=== PATIENT | female | born 2000 | race Caucasian/White ===

== ENCOUNTER 2023-06-03 23:27 | Emergency (ER) | payer BC, SELFPAY ==
[2023-06-03 23:50] VITALS: BP 134/78; PULSE 85; RESP 18; TEMP 36.8; O2SAT 99; BMI 32.0
[2023-06-03 23:50] LABS: Appearance Urine Cloudy (Clear); Bilirubin Urine 1+ (Negative); Blood Urine 3+ (Negative); Color Urine Yellow (Yellow); Glucose Urine Negative (Negative); Ketones Urine Trace (Negative); Leukocyte Esterase Urine 1+ (Negative); Nitrite Urine Negative (Negative); Protein Urine 3+ (Negative); Specific Gravity Urine >= 1.030 (1.000-1.030); Urobilinogen Urine 0.2 (0.2-1.0); pH Urine 5.5 (5.0-8.5)
[2023-06-04 00:03] LABS: Bacteria Urine Few; RBC Urine >100 (0-2); WBC Urine >100 (0-5)
--- NOTE | 2023-06-04 00:15 | ED.GENADULT ---
HPI - General Adult General Chief complaint: Urogenital Problems, Female Stated complaint: Possible UTI Time Seen by Provider: 06/03/23 23:56 Source: patient Mode of arrival: ambulatory History of Present Illness HPI narrative: 22-year-old female with a reported history of autism and Joe presents to the emergency department for evaluation of dysuria for the past 2 days. No nausea, no flank pain, no fevers. No vaginal itching or discharge. Has never been sexually active. She is accompanied by her mother today. No abdominal pain. Normal appetite. Does not believe that she has previously had urinary infections. No history of STDs. Tried taking ibuprofen yesterday with some temporary improvement in symptoms. Has not tried any other treatments. No trauma or injury. Past medical history notable for POTS and autism per mom. No long-term medications. Allergies are to penicillins. Morphine allegedly causes bradycardia but there is no true allergy reported to it. Nonsmoker. ROS is notable for the urinary symptoms as above only, otherwise denies times 12 systems for me today. Mom does attempt to answer most of her questions for her but they will allow redirection on specific questioning. Related Data Previous Rx's Medication Instructions Recorded ciprofloxacin HCl 250 mg tablet 250 mg PO BID #9 tabs 06/04/23 Allergies Allergy/AdvReac Type Severity Reaction Status Date / Time amoxicillin Allergy Mild Hives Verified 06/03/23 23:53 morphine Allergy Mild Bradycardia Verified 06/03/23 23:53 Penicillins Allergy Mild Hives Verified 06/03/23 23:53 Exam Const: Vital Signs, click to edit/add: Vital Signs - 24 hr 06/03/23 23:50 Temperature 98.2 F Pulse Rate [Right Pulse Oximeter] 85 Respiratory Rate 18 Blood Pressure [Ri ght Upper Arm] 134/78 Pulse Oximetry 99 Oxygen Delivery Me thod Room Air Documenting provider has reviewed patient's vital signs: yes Common normals: no apparent distress and alert General appearance: cooperative, comfortable and well kempt HENMT: Common normals: normocephalic and head/scalp atraumatic Head and scalp: normocephalic and atraumatic Mouth: oral and palatal mucosa normal Eye: Common normals: conjunctivae normal General eye: normal appearance of both eyes Conjunctiva: conjunctiva(e) normal Resp: Common normals: normal respiratory effort and clear to auscultation bilaterally Effort & inspection: able to speak in complete sentences Auscultation: clear to auscultation bilaterally Cardio: Common normals: regular rate, regular rhythm, S1 normal heart sound and no murmurs Rate: regular rate Rhythm: regular rhythm Heart sounds: S1 normal GI: Common normals: Normal to inspection, nondistended, normoactive bowel sounds present, soft to palpation, non-tender, no hepatosplenomegaly and no masses Palpation: soft and no hepatosplenomegaly : Common normals: no CVA tenderness Bladder/kidney exam: no CVA tenderness Back & Pelvis: Common normals: no CVA tenderness Neuro: Sensorium/orientation: alert Psych: Appearance: well kempt Activity/motor behavior: appropriate eye contact Mood and affect: euthymic mood Skin: Common normals: no rashes or lesions noted General skin exam: no rashes or lesions noted Course Course ED Course: Urinalysis reviewed, suspicious for mild bladder infection. No features of flank pain, vomiting, sepsis, fever or other worrisome finding. Recommended treatment with antibiotic. She does not have a history of recurrent infections and we do not have significant local resistance. I recommended ciprofloxacin 500 mg p.o. x1 here today and will send an additional 4 days supply to her pharmacy. Counseled on signs and symptoms of yeast vaginitis and use of [id number]-lglnicv Monistat if needed. Single dose of Pyridium will be given here in ED, counseled on additional dosing [id number] if needed. Alarm symptoms reviewed that would warrant ED presentation. Vital Signs Vital signs: Initial Vital Signs Temperature 98.2 F 06/03/23 23:50 Temperature Source Temporal Artery Scan 06/03/23 23:50 Pulse Rate 85 06/03/23 23:50 Respiratory Rate 18 06/03/23 23:50 Blood Pressure 134/78 06/03/23 23:50 Blood Pressure Mean 96 06/03/23 23:50 Blood Pressure Position Sitting 06/03/23 23:50 Pulse Oximetry 99 06/03/23 23:50 Oxygen Delivery Method Room Air 06/03/23 23:50 Vital Signs Temperature 98.2 F 06/03/23 23:50 Pulse Rate 85 06/03/23 23:50 Respiratory Rate 18 06/03/23 23:50 Blood Pressure 134/78 06/03/23 23:50 Pulse Oximetry 99 06/03/23 23:50 Oxygen Delivery Method Room Air 06/03/23 23:50 Temperature 98.2 F 06/03/23 23:50 Pulse Rate 85 06/03/23 23:50 Respiratory Rate 18 06/03/23 23:50 Blood Pressure 134/78 06/03/23 23:50 Pulse Oximetry 99 06/03/23 23:50 Oxygen Delivery Method Room Air 06/03/23 23:50 Medical Decision Making Lab Data Labs: Lab Results 06/03/23 Range/Units 23:37 Urine Color Yellow (Yellow) Urine Appearance Cloudy A (Clear) Urine pH 5.5 (5.0-8.5) Ur Specific [place] >= 1.030 (1.000-1.030) Urine Protein 3+ A (Negative) Urine Glucose (UA) Negative (Negative) Urine Ketones Trace A (Negative) Urine Blood 3+ A (Negative) Urine Nitrite Negative (Negative) Urine Bilirubin 1+ A (Negative) Urine Urobilinogen 0.2 (0.2-1.0) Ur Leukocyte Esterase 1+ A (Negative) Urine RBC >100 A (0-2) Urine WBC >100 A (0-5) Ur Squamous Epith Cells None (None-Few) Urine Bacteria Few A (None) Discharge Plan Discharge Clinical Impression: Urinary tract infection Patient Disposition: Home w/ Parent or Adult Condition: Stable Instructions: Urinary Tract Infection in Women (DC) Additional Instructions: As we discussed, your urine test is consistent with a mild bladder infection. This does fit clinically with the symptoms you are describing. I recommended gentle antibiotic for the next few days. You received your 1st dose here in the emergency department. Please take your next dose later this afternoon. Your 3rd dose will be Saturday morning. Continue taking the medication twice daily until gone. You were given a single dose of an [id number] bladder pain medication known as Pyridium. This is sold [id number] as ?urinary pain relief? by the brand azo. There is another similar brand called Uristat. You may continue taking these if needed for bladder pain, but often a single dose is sufficient. Remember that as we discussed, it will turn your urine bright orange/red and sometimes even magenta. There is a small chance of a vaginal yeast infection from this antibiotic. If you start to experience itching and burning more of labial [place], I would recommend [id number] Monistat cream twice daily. If her symptoms have not improved in 5 days please make a follow-up appointment in the clinic for re-evaluation. If you begin having persistent vomiting, high fevers or are extremely weak, come back to the emergency department. Activity Level: No Restrictions Discharge Diet: Regular Prescriptions: New ciprofloxacin HCl 250 mg tablet 250 mg PO BID Qty: 9 0RF Stand Alone Forms: [employer] Info Instructions
[2023-06-04] MEDS: CIPROFLOXACIN 500 MG TABLET PO (00:18)
[2023-06-04] MEDS: PHENAZOPYRIDINE HCL 200 MG TABLET PO (00:19)
[2023-06-04 00:30] VITALS: BP 125/68; PULSE 79; RESP 18; TEMP 36.8; O2SAT 99
== END 2023-06-04 00:30 | disposition home or self-care (01) ==
LOC: ED 06-04 00:27
PROVIDERS: Emergency Provider Family Medicine
DX: N39.0 Urinary tract infection, site not specified (principal)
CPT/HCPCS: 81001; 87086; 87186; 99283; A9270

== ENCOUNTER 2023-11-04 19:50 | Outpatient (CLI) | payer BC, SELFPAY | END 2023-11-04 19:51 | disposition home or self-care (01) | LOC: LKVREF 19:50 | PROVIDERS: Visit Provider Physician Assistant | DX: R30.0 Dysuria (principal) | CPT/HCPCS: 87086 ==

== ENCOUNTER 2023-12-05 08:17 | Outpatient (CLI) | payer BC, SELFPAY ==
[2023-12-05 16:56] LABS: Bacterial Vaginosis* Negative (Negative); Candida glab/krus NOT DETECTED (No Detected); Candida species NOT DETECTED (No Detected); Trichomonas vaginalis NOT DETECTED (No Detected)
== END 2023-12-05 08:18 | disposition home or self-care (01) ==
LOC: FRMREF 08:18
PROVIDERS: Visit Provider Registered Nurse
DX: N89.8 Other specified noninflammatory disorders of vagina (principal); Z11.3 Encounter for screening for infections with a predominantly sexual mode of transmission
CPT/HCPCS: 81513; 87481; 87661

== ENCOUNTER 2025-03-17 10:48 | Outpatient (CLI) | payer BC, SELFPAY | END 2025-03-17 10:49 | disposition home or self-care (01) | LOC: NFLDREF 03-22 02:36 | PROVIDERS: PCP Nurse Practitioner Family; Referring Provider Nurse Practitioner Family; Visit Provider Physician Assistant Medical | DX: N39.0 Urinary tract infection, site not specified (principal) | CPT/HCPCS: 87086 ==